=== PATIENT | male | born 1990 | race Caucasian/White ===

== ENCOUNTER 2017-03-14 21:15 | Emergency (ER) | payer MEDICAID ==
[~2017-03-14] VITALS: Ht 172.7 cm; Wt 70.8 kg
[~2017-03-14 21:15] MED LIST: CLIN-79 PO; HYDR-3702 PO; IBP200T PO
--- OUTSIDE RECORDS SUMMARY | 2017-03-14 21:19 | XMS REPORT | Continuity of Care Document ---
Author Author [facility] Organization [facility] Address Unknown Phone Unavailable Allergies Active Description Code Type Severity Reaction Onset Reported/Identified Relationship to Patient Clinical Status Yes Penicillins 476 Drug Allergy N/A N/A 06/25/2013 Confirmed or Verified Yes No Known Drug Allergies [id number] Drug Allergy Unknown N/ A 01/28/2015 Yes tramadol [id number] Drug Allergy Moderate N/A 12/23/2015 Yes Penicillins [id number] Drug Allergy Unknown N/A 12/23/2015 Medications Problems Date Dx Coded Attending Type Code Diagnosis Diagnosed By 06/25/2013 EMERALD JULIAN MD, RASHID Pugh D 558.9 NONINF GASTROENTERIT NEC 01/29/2015 IDRIS HEBERT, CROW Pugh Ot 379.99 ILL-DEFINED EYE DIS NEC 01/29/2015 CROW STEINBERG MD, Ot 918.1 SUPERFICIAL INJ CORNEA 01/29/2015 CROW STEINBERG MD Ot E914 FB ENTERING EYE 12/23/2015 CROW STEINBERG MD, Ot K02.9 DENTAL CARIES, UNSPECIFIED 12/23/2015 CROW STEINBERG MD, Ot K04.7 PERIAPICAL ABSCESS WITHOUT SINUS Procedures Code Description [place] [address] COMPREHEN METABOLIC PANEL EMERALD JULIAN MD, RASHID Pugh 06/25/2013 50543 URINALYSIS, AUTO, W/O SCOPE EMERALD JULIAN MD, RASHID Pugh 06/25/2013 27539 COMPLETE CBC, AUTOMATED EMERALD JULIAN MD, RASHID Pugh 06/25/2013 49946 HYDRATE IV INFUSION, ADD-ON EMERALD JULIAN MD, RASHID Pugh 06/25/2013 59410 THER/PROPH/DIAG INJ, IV PUSH EMERALD JULIAN MD, RASHID Pugh 06/25/2013 [id number] EMERGENCY DEPT VISIT EMERALD JULIAN MD , RASHID Pugh 06/25/2013 [id number] ONDANSETRON HCL INJECTION EMERALD JULIAN MD, RASHID R 06/25/2013 J7030 INFUSION, NS, 1000 CC EMERALD JULIAN MD , RASHID R 06/25/2013 Results Test Result Range CBC - 06/25/13 11:05 Granulocyte # 5.8 x10^3 3.0-7.0 Granulocyte % 78.2 % 50-70 HCT 43.3 % 42.0-52.0 HGB 14.8 G/DL 14.0-18.0 Lymph # 1.3 x10^3 1.0-4.0 Lymph % 18.4 % 20-50 MCH 32.3 PG 27.0-31.0 MCHC 34.2 G/DL 32.0-36.0 MCV 95 FL 80-94 [place] # 0.2 x10^3 0.0-0.8 [place] % 3.4 % 1.0-9.0 MPV 6.7 FL 6.0-10.0 Platelet 268 x10^3 150-400 RBC 4.57 x10^3 4.60-6.20 RDW 13.4 % 10.0-13.0 WBC 7.3 x10^3 5.8-10.8 Comprehensive Metabolic Panel - 06/25/13 11:05 Sodium 145 MMOLL 134-145 Potassium 3.9 MMOLL 3.6-5.0 Chloride 108 MMOLL 98-107 CO2 26 MMOLL 22-30 Glucose 100 MG/DL 75-110 BUN 10 MG/DL 9-20 Creatinine .8 MG/DL 0.8-1.7 Calcium 9.4 MG/DL 8.4-10.2 T Bili .6 MG/DL 0.2-1.3 T. Protein 7.4 G/DL 6.3-8.2 A/G Ratio 1.3 RATIO Albumin 4.1 G/DL 3.5-5.0 Alk Phos 81 U/L 38-126 ALT 52 U/L 11-66 AST 39 U/L 14-36 Urinalysis - 06/25/13 11:50 Bilirubin Negative Negative Blood Negative Negative Color Yellow Glucose Negative Negative Ketones Negative Negative Leukocyte Negative Negative Nitrite Negative Negative pH 8.5 5.0-9.0 Urine Appearance Clear Protein Negative Negative Urobilinogen 0.2 MG/DL 0.20 Specific [place] 1.020 1.005-1.030 Encounters ACCT No. Visit Date/Time Discharge Status Pt. Type Provider Facility Loc./Unit Complaint [id number] 06/25/2013 10:45:00 06/25/2013 12:48:00 DIS Emergency EMERALD JULIAN MD, RASHID Lexy [facility]
--- OUTSIDE RECORDS SUMMARY | 2017-03-14 21:20 | XMS REPORT | Continuity of Care Document ---
Author Author [facility] [place][Note 2] Organization [facility] [place][Note 2] Address Unknown Phone Unavailable Allergies Active Description Code Type Severity Reaction Onset Reported/Identified Relationship to Patient Clinical Status Yes Penicillins 476 Drug Allergy N/A N/A 06/25/2013 Confirmed or Verified Yes No Known Drug Allergies [id number] Drug Allergy Unknown N/ A 01/28/2015 Yes tramadol [id number] Drug Allergy Moderate N/A 12/23/2015 Yes Penicillins [id number] Drug Allergy Unknown N/A 12/23/2015 Medications Problems [...] Procedures Code Description [place] [address] COMPREHEN METABOLIC PANEL EMERALD JULIAN MD, RASHID Pugh 06/25/2013 03876 URINALYSIS, AUTO, W/O SCOPE EMERALD JULIAN MD, RASHID Pugh 06/25/2013 68822 COMPLETE CBC, AUTOMATED EMERALD JULIAN MD, RASHID Pugh 06/25/2013 87546 HYDRATE IV INFUSION, ADD-ON EMERALD JULIAN MD, RASHID Pugh 06/25/2013 13914 THER/PROPH/DIAG INJ, IV PUSH EMERALD JULIAN MD, RASHID Pugh 06/25/2013 40962 EMERGENCY DEPT VISIT EMERALD JULIAN MD , [...] 34.2 G/DL 32.0-36.0 MCV 95 FL 80-94 [place] # 0.2 x10^3 0.0-0.8 [place] % 3.4 % 1.0-9.0 MPV 6.7 FL [...] Negative Negative Urobilinogen 0.2 MG/DL 0.20 Specific [place] 1.020 1.005-1.030 Encounters ACCT No. Visit Date/Time Discharge Status Pt. Type Provider Facility Loc./Unit Complaint [id number] 06/25/2013 10:45:00 06/25/2013 12:48:00 DIS Emergency EMERALD JULIAN MD, RASHID Lexy [facility]
[2017-03-14 22:18] VITALS: BP 124/71
[2017-03-14] MEDS ORDERED: BUSP5TAB59 PO (22:33)
[2017-03-14] MEDS ORDERED: CLON0.5T25 PO (22:33)
[2017-03-14] MEDS ORDERED: PRX10T PO (22:33)
[2017-03-14] MEDS ORDERED: CEPHALEXIN 500 MG (KEFLEX) CAPSULE PO ONE (22:45)
[2017-03-14] MEDS ORDERED: ED- HYDROcodone/ACETAMINOPHEN 5MG/325MG (NORCO) 6 TABLETS/BTL PO ONE (22:45)
[2017-03-14] MEDS ORDERED: CLINDAMYCIN 150 MG (CLEOCIN) CAP PO ONE (22:50)
[2017-03-14] MEDS ORDERED: CLIN-79 PO (22:51)
[2017-03-14] MEDS ORDERED: HYDR-3702 PO (22:51)
== END 2017-03-14 23:05 | disposition home or self-care (01) ==
LOC: ED 21:16
DX: K02.9 Dental caries, unspecified (principal)
CPT/HCPCS: 99282; A9270